=== PATIENT | male | born 1965 | race American Indian/Alaskan Native ===

== ENCOUNTER 2016-04-21 22:54 | Emergency (ER) | payer MEDICARE ==
[2016-04-22] LABS: Basophils % (Auto) 0.4 % (0.0-1.8); Eosinophils % (Auto) 2.1 % (0.0-4.3); Hematocrit 38.8 % (35.5-45.6); Hemoglobin 13.3 gm/dl (11.8-15.2); Mean Corpuscular HGB Conc 34 % (32-34); Mean Corpuscular Hemoglobin 32 pg (28-32); Mean Corpuscular Volume 94 fl (84-94); Platelet Count 264 K/mm3 (140-440); Red Blood Count 4.15 M/mm3 (3.65-5.03); Red Cell Distribution Width 13.2 % (13.2-15.2); White Blood Count 10.3 K/mm3 (4.5-11.0)
[2016-04-22 00:21] LABS: Anion Gap 17 mmol/L; BUN/Creatinine Ratio 14.37; Blood Urea Nitrogen 23 mg/dL (9-20); Calcium 9.5 mg/dL (8.4-10.2); Carbon Dioxide 28 mmol/L (22-30); Glucose 245 mg/dL (75-100); Potassium 5.3 mmol/L (3.6-5.0); Sodium 125 mmol/L (137-145)
[2016-04-22] MEDS ORDERED: NACL 0.9% 1000 ML 1,000 ML IV ONE (11:07)
[2016-04-22] MEDS ORDERED: ZOFRAN ODT PO ONE (11:07)
[2016-04-22] MEDS ORDERED: NACL 0.9% 1000 ML 2,000 ML IV ONE (11:28)
--- NOTE | 2016-04-22 11:42 | Admit Criteria Form ---
Admission Criteria Documentation: HYPONATREMIA; HYPERNATREMIA; HYPOKALEMIA; HYPERKALEMIA; HYPOCALCEMIA; HYPERCALCEMIA Clinical Indications for Inpatient Care (Place 'X' for any and all applicable criteria): Ongoing inpatient care may be indicated for ANY ONE of the following [G](1)(2)(3 )(5): [X ]I. Hyponatremia with ANY ONE of the following: [X ]a) Sodium less than 130 mEq/L (mmol/L) (new) (6)(22) [ ]b) Sodium less than 135 mEq/L (mmol/L) with ANY ONE of the following: [ ]i) Severe medical etiology requiring inpatient management (eg, heart failure, hypovolemia) [ ]ii) Altered mental status [ ]iii) Seizures [ ]II. Hypernatremia with ANY ONE of the following: [ ]a) Sodium greater than 155 mEq/L (mmol/L) [ ]b) Sodium greater than 150 mEq/L (mmol/L) with ANY ONE of the following: [ ] i) Altered mental status [ ]ii) Seizures [ ]iii) Severe medical etiology (eg, hypovolemia, diabetes insipidus) [ ]iv) Severe weakness [ ]v) Severe medical etiology (eg, hemolysis, infection, drug overdose) [ ]III. Hypokalemia with ANY ONE of the following: [ ]a) Potassium less than 2.5 mEq/L (mmol/L) despite outpatient and emergency treatment [ ]b) Potassium less than 3.0 mEq/L (mmol/L) with ANY ONE of the following: [ ]i) Weakness [ ]ii) Cardiac abnormality (eg, arrhythmia, conduction disturbance) [ ]iii) Cardiac ischemia [ ]iv) Ileus [ ]v) Ongoing medical cause requiring inpatient management. ( e.g., acute renal wasting, SIADH) [ ]vi) Other severe symptoms [ ] IV. Hyperkalemia with ANY ONE of the following: [ ]a) Potassium greater than 6.5 mEq/L (mmol/L) [ ]b) Potassium greater than 5 mEq/L (mmol/L) with ANY ONE of the following: [ ]i) Severe ECG findings [H] [ ]ii) Acute worsening of renal failure (creatinine greater than 2.5 mg/dL (221 micromoles/L) or significant elevation for age and size) [ ] V. Hypocalcemia with ANY ONE of the following: [ ]a) Calcium less than 7 mg/dL (1.75 mmol/L) despite outpatient and emergency treatment(19) [ ]b) Calcium less than 8 mg/dL (2 mmol/L) with significant symptoms or findings; examples include: [ ]i) Cardiac abnormality (eg, arrhythmia or conduction disturbance) [ ]ii) Altered mental status [ ]iii) Seizures [ ]iv) Breathing difficulty [ ]v) Muscle spasms [ ]. Hypercalcemia with ANY ONE of the following: [ ]a) Calcium greater than 14 mg/dL (3.5 mmol/L) [ ]b) Calcium greater than 12 mg/dL (3 mmol/L) with ANY ONE of the following: [ ]i) Significant dehydration or hypovolemia as indicated by ANY ONE of the following(2): [ ]1. Clinically significant dehydration as indicated by ANY ONE of the following: [ ]A. Acute loss of weight from baseline (5% of body weight in adults, 9% in pediatric patients) [ ]B. Hemodynamic instability [ ]C. Acute renal failure [ ]D. Serum sodium greater than 150 mEq/L (mmol/L) [ ]2) Dehydration that is persistent indicated by ALL of the following: [ ]A. Oral rehydration therapy not tolerated or insufficient to adequately correct dehydration [ ]B. Appropriate intravenous treatment (eg, fluids ) does not readily correct dehydration ie, after 12 to 24 hours of treatment) [ ]ii) Significant symptoms or findings; examples include: [ ]1) Altered mental status [ ]2) Cardiac abnormality (eg, arrhythmia, conduction disturbance) [ ]3) Cardiac abnormality (eg, arrhythmia, conduction disturbance) The original [employer] content created by [facility] has been revised. The portions of the content which have been revised are identified through the use of italic text or in bold, and [facility] has neither reviewed nor approved the modified material. All other unmodified content is copyright [facility] [employer] Please see references footnoted in the original [facility] [employer] edition 2016 Admission Criteria Met: Yes
--- NOTE | 2016-04-22 11:50 | XRay Report ---
CHEST ONE VIEW INDICATION: Chest pain. COMPARISON: 04/18/2016. FINDINGS: Portable, single, frontal chest radiograph demonstrates normal cardiomediastinal silhouette. Clear lungs. Unremarkable bones. Extrinsic EKG leads. CONCLUSION: No acute disease in the chest. Thank you for the opportunity to participate in this patient's care.
[2016-04-22] MEDS ORDERED: SUBLIMAZE IV ONE (12:42)
[2016-04-22 13:22] LABS: Anion Gap 22 mmol/L; BUN/Creatinine Ratio 15.71; Blood Urea Nitrogen 22 mg/dL (9-20); Calcium 9.6 mg/dL (8.4-10.2); Carbon Dioxide 25 mmol/L (22-30); Chloride 85.9 mmol/L (98-107); Glucose 226 mg/dL (75-100); Potassium 4.7 mmol/L (3.6-5.0); Sodium 128 mmol/L (137-145)
[2016-04-22 15:34] VITALS: BP 161/96
--- NOTE | 2016-04-22 17:35 | Cat Scan Report ---
FINAL REPORT PROCEDURE: CT ABDOMEN PELVIS WO CON TECHNIQUE: Computerized axial tomography of the abdomen and pelvis was performed without intravenous contrast. This study is performed without intravascular contrast material and its sensitivity for abdominal and pelvic pathology, including neoplasms, inflammation, abscess, free fluid, thrombosis, arterial dissection and infarction, is reduced compared with a contrast enhanced study. HISTORY: abdominal pain and vomiting COMPARISON: No prior studies are available for comparison. FINDINGS: Visualized lower thorax: Minimal dependent atelectasis. Liver: Fatty infiltration liver. Spleen: Normal size and attenuation. Gallbladder and biliary system: Normal. Pancreas: Normal. Adrenals: Normal. Kidneys: Indeterminate for fullness in the right renal hilum. Renal masses are not excludable without IV contrast. Consider IV contrasted study or ultrasound if warranted.. GI tract: Contrast in portions of large and distal small bowel. Normal caliber appendix in the left lower quadrant not in the right lower quadrant as typically seen axial 128 Lymph nodes and mesentery: Normal. Vasculature: Normal. Bladder: Decompressed bladder with mild wall thickening in the 7-8 millimeter range. Cystitis not entirely excludable.. Reproductive organs: Mildly enlarged heterogeneous prostate gland measuring 3.3 x 5.0 centimeters.. Peritoneum: No free fluid. Musculoskeletal structures: No significant abnormality. Disc bulging L4-5 L5-S1 Other: Right inguinal herniation fat. Umbilical herniation fat IMPRESSION: No acute obstructive abdominal pelvic pathology seen at this time Details above If symptoms and or concern persists recommend followup CT scan with IV contrast and more or adequate oral contrast.
--- NOTE | 2016-04-22 18:04 | Emergency Department Report ---
HPI - General Chief Complaint: Chest Pain Time Seen by Provider: 04/22/16 11:27 - HPI HPI: The patient is a 51-year-old male who presents for evaluation of chest pain and abdominal pain. The patient reports 1 week of midsternal chest pain and epigastric abdominal pain, both burning in quality, moderate in severity, on and off, and exacerbated with eating. The patient also reports nausea and multiple episodes of nonbilious, nonbloody emesis. The patient denies fever, chills, night sweats, diarrhea, blood in the stool, dark tarry stool, dysuria, hematuria, flank pain, genital discharge, inability to pass flatus. ED Past Medical Hx - Past Medical History Previous Medical History?: Yes Hx Hypertension: Yes Hx Diabetes: Yes Additional medical history: stomach issues - Surgical History Past Surgical History?: Yes Additional Surgical History: hernia repair - Social History Smoking Status: Never Smoker Substance Use Type: Prescribed - Medications Home Medications: Home Medications Medication Instructions Recorded Confirmed Last Taken Type Insulin Aspart Prot/Aspart 25 units SQ QAM 10/19/12 04/22/16 10/18/12 History [NovoLOG Mix 70/30 VIAL] metFORMIN [Glucophage] 500 mg PO BID 10/19/12 04/22/16 10/18/12 History Acetaminophen [Tylenol] 500 mg PO Q8HR #20 tablet 04/18/16 04/22/16 Unknown Rx Ondansetron [Zofran TAB] 4 mg PO Q8HR PRN #20 tablet 04/18/16 04/22/16 Unknown Rx Cyclobenzaprine HCl [Flexeril 5 MG 5 mg PO Q8HR PRN #10 tab 04/22/16 Unknown Rx TAB] Insulin Aspart Prot/Aspart 20 units SQ QPM 04/22/16 04/22/16 Unknown History [NovoLOG Mix 70/30 VIAL] Ondansetron [Zofran TAB] 4 mg PO Q8HR PRN #15 tablet 04/22/16 Unknown Rx busPIRone [Buspar] 5 mg PO BID 04/22/16 04/22/16 Unknown History ED Review of Systems ROS: Stated complaint: N/V Other details as noted in HPI Constitutional: denies: fever ENT: denies: throat or neck pain Respiratory: denies: cough, shortness of breath Cardiovascular: reports chest pain Endocrine: denies unexplained weight loss or gain Gastrointestinal: reports abdominal pain, nausea Genitourinary: denies: dysuria Musculoskeletal: denies: leg swelling Skin: denies: rash Neurological: denies: headache Hematological/Lymphatic: denies: easy bleeding or easy bruising Psych: denies sadness or hopelessness Physical Exam - Physical Exam Vital Signs: Vital Signs 04/21/16 04/22/16 04/22/16 23:28 12:50 15:31 Temperature 98.6 F Pulse Rate 77 79 Respiratory 18 16 16 Rate Blood Pressure 97/64 Blood Pressure 97/64 161/96 [Left] O2 Sat by Pulse 100 99 Oximetry Physical Exam: General: well-nourished, well-developed, no acute distress Head: Normocephalic, atraumatic Eyes: normal sclera ENT: Mucous membranes are pale and dry Neck: No neck stiffness, no cervical adenopathy Respiratory: Breath sounds equal bilaterally, no wheezing, rales, or rhonchi Cardio: S1 and S2 present, no murmurs, rubs, gallops, capillary refill is delayed Abdomen: Normoactive bowel sounds, soft abdomen, epigastric tenderness to palpation present, no rigidity, no guarding or rebound tenderness Chest WALL/Back: No tenderness to palpation of the chest wall, no CVA tenderness with percussion Musc: No pitting edema Skin: No rash Neuro: no facial drooping, normal speech Psych: Normal affect ED Course Vital Signs 04/21/16 04/22/16 04/22/16 23:28 12:50 15:31 Temperature 98.6 F Pulse Rate 77 79 Respiratory 18 16 16 Rate Blood Pressure 97/64 Blood Pressure 97/64 161/96 [Left] O2 Sat by Pulse 100 99 Oximetry ED Medical Decision Making - Lab Data Result diagrams: 04/21/16 23:48 04/22/16 11:50 - Medical Decision Making The patient was seen and examined by myself. The patient is placed on a catering staff member and continuous pulse ox. On initial evaluation, the patient was found to be in no distress. Evaluation orders were placed. Lab results reveal elevated creatinine of 1.6, elevated glucose 226, mildly elevated lactic acid 2 , and low sodium and chloride levels. The patient is administered 2 L normal saline fluid bolus for treatment of hyperglycemia, dehydration, renal insufficiency, and mild hyperkalemia 5.3. Otherwise labs were not concerning including 3 sets of normal troponin level. A repeat BMP was obtained and reveals increase in sodium and chloride levels, resolution of hyperkalemia, and resolution of acute kidney injury, creatinine now 1.4. CT scan abdomen and pelvis is ordered The patient removed IV prior to CT scan, preventing IV contrast administration. CT scan of the abdomen and pelvis with oral contrast is obtained and is negative for findings concerning for bowel obstruction. The patient was reevaluated and reported that their symptoms were markedly improved. On reexamination the patient has soft abdomen, without guarding, rigidity, or rebound tenderness, nonacute abdomen. The patient states that he has a strong appetite and would like to eat. He is given a full meal tray which he tolerates without any difficulty. He has no nausea or vomiting at the tolerating meal. The patient is stable for discharge with outpatient follow-up. The patient is given follow-up and return instructions. The patient expressed understanding and agreed with the plan. The patient is discharged in stable condition. Critical care attestation.: If time is entered above; I have spent that time in minutes in the direct care of this critically ill patient, excluding procedure time. ED Disposition Clinical Impression: Acute hyperglycemia, Dehydration, Abdominal pain, acute, epigastric, Acute chest pain, Nausea and vomiting in adult, Acute hyperkalemia Disposition: DISCHARGED TO HOME OR SELFCARE Is pt being admited?: No Does the pt Need Aspirin: No Condition: Stable Instructions: Chest Pain (ED), Acute Nausea and Vomiting (ED), Diabetic Hyperglycemia (ED) Prescriptions: Cyclobenzaprine HCl [Flexeril 5 MG TAB] 5 mg PO Q8HR PRN #10 tab PRN Reason: Pain Ondansetron [Zofran TAB] 4 mg PO Q8HR PRN #15 tablet PRN Reason: Nausea Referrals: PRIMARY CARE, [Primary Care Provider] - 3-5 Days Time of Disposition: 18:00
== END 2016-04-22 18:17 | disposition home or self-care (01) ==
LOC: ED 22:54
DX: E11.65 Type 2 diabetes mellitus with hyperglycemia (principal); E86.0 Dehydration; R10.13 Epigastric pain; R07.9 Chest pain, unspecified; R11.2 Nausea with vomiting, unspecified; E87.5 Hyperkalemia; I10 Essential (primary) hypertension
CPT/HCPCS: 36415; 71010; 74176; 80048; 82010; 82140; 82805; 84484; 85025; 93005; 93010; 96361; 96374; 96375; 99285; J3010; J7030; J1815; Q0162